=== PATIENT | male | born 1945 | race Caucasian/White ===

== ENCOUNTER 2022-06-20 20:27 | Inpatient (IN) | payer OTHER ==
[2022-06-20] MEDS ORDERED: Ondansetron ODT 4 MG TAB PO PRN (21:58)
[2022-06-20] MEDS ORDERED: Acetaminophen 650 MG Suppository PR PRN (21:58)
[2022-06-20] MEDS ORDERED: Dextrose 50% Abboject 50 ML SYRINGE SLOW IVP PRN (21:58)
[2022-06-20] MEDS ORDERED: Dextrose 5% in Water 1,000 ML IV PRN (21:58)
[2022-06-20] MEDS ORDERED: HumaLOG 300 UNITS/3 ML VIAL SC PRN (21:58)
[2022-06-20] MEDS ORDERED: hydrALAZINE 20 MG/ML VIAL SLOW IVP PRN (21:58)
[2022-06-20 22:55] VITALS: BMI 27.9
[2022-06-21 05:01] LABS: #Eosinphils 0.1 thou/uL (0.0-0.7); #Lymphocytes 1.4 thou/uL (1.20-3.40); #Monocytes 0.6 thou/uL (0.11-0.59); #Neutrophils 4.2 thou/uL (1.40-6.50); %Basophils 0.5 % (0.0-1.0); %Eosinophils 1.2 % (0.0-10.0); %Lymphocytes 22.1 % (21.0-51.0); %Monocytes 9.4 % (0.0-10.0); %Neutrophils 66.9 % (42.0-75.0); Hemoglobin 12.6 g/dL (14.0-18.0); Mean Corpuscular HGB CONC 32.8 g/dL (32.0-36.0); Mean Corpuscular Hemoglobin 32.9 pg (27.0-31.0); Mean Platelet Volume 7.9 fL (7.4-10.4); Platelet Count 166 10x3/uL (130-400); RBC Distribution Width 11.9 % (11.5-14.5); Red Blood Cell (RBC) Count 3.83 mill/uL (4.70-6.10); White Blood Cell (WBC) Count 6.3 10x3/uL (4.8-10.8)
[2022-06-21 05:28] LABS: Anion Gap 13 mmol/L (10-20); BUN (Urea Nitrogen) 16 mg/dL (8.4-25.7); Calc. Creatinine Clearance 104 mL/min (70-130); Calcium 9.8 mg/dL (7.8-10.44); Carbon Dioxide 27 mmol/L (23-31); Cardiac Risk 3.6 (Less than 4.5); Chloride 103 mmol/L (98-107); Cholesterol 128 mg/dl (< 200 Desired); Estimated GFR 91; Glucose 109 mg/dL (83-110); HDL Cholesterol 36 mg/dL (>60 Neg Risk); LDL Cholesterol, Calculated 71 mg/dL; Magnesium 1.7 mg/dL (1.6-2.6); Sodium 139 mmol/L (136-145); Triglycerides 104 mg/dL (Less than 150)
[2022-06-21] MEDS: Aspirin 81 mg Enteric Coated Tablet PO SCH (13:22)
[2022-06-21] MEDS: Atorvastatin Calcium 40 MG TAB PO SCH (20:04)
[2022-06-21] MEDS: Ondansetron PF 4 MG/2 ML Vial IVP PRN (20:04)
[2022-06-21] MEDS: Heparin 5,000 UNITS/ML VIAL SC SCH (20:04)
[2022-06-22 05:58] LABS: #Lymphocytes 1.3 thou/uL (1.20-3.40); #Monocytes 0.7 thou/uL (0.11-0.59); #Neutrophils 4.9 thou/uL (1.40-6.50); %Basophils 0.4 % (0.0-1.0); %Eosinophils 0.6 % (0.0-10.0); %Lymphocytes 19.1 % (21.0-51.0); %Monocytes 10.1 % (0.0-10.0); %Neutrophils 69.8 % (42.0-75.0); Hemoglobin 13.4 g/dL (14.0-18.0); Mean Corpuscular HGB CONC 33.7 g/dL (32.0-36.0); Mean Corpuscular Hemoglobin 33.8 pg (27.0-31.0); Mean Platelet Volume 8.3 fL (7.4-10.4); Platelet Count 178 10x3/uL (130-400); Red Blood Cell (RBC) Count 3.97 mill/uL (4.70-6.10); White Blood Cell (WBC) Count 7.1 10x3/uL (4.8-10.8)
[2022-06-22 06:18] LABS: Anion Gap 16 mmol/L (10-20); BUN (Urea Nitrogen) 13 mg/dL (8.4-25.7); Calc. Creatinine Clearance 94 mL/min (70-130); Calcium 10.2 mg/dL (7.8-10.44); Carbon Dioxide 25 mmol/L (23-31); Chloride 101 mmol/L (98-107); Estimated GFR 89; Glucose 129 mg/dL (83-110); Sodium 138 mmol/L (136-145)
[2022-06-22] MEDS: Aspirin 81 mg Enteric Coated Tablet PO SCH (09:27)
[2022-06-22] MEDS: Ondansetron PF 4 MG/2 ML Vial IVP PRN ×2 (09:27→20:11)
[2022-06-22] MEDS: Heparin 5,000 UNITS/ML VIAL SC SCH ×2 (09:28→20:10)
[2022-06-22] MEDS: Atorvastatin Calcium 40 MG TAB PO SCH (20:10)
[2022-06-23 06:12] LABS: #Lymphocytes 1.3 thou/uL (1.20-3.40); #Monocytes 0.7 thou/uL (0.11-0.59); #Neutrophils 3.9 thou/uL (1.40-6.50); %Basophils 0.3 % (0.0-1.0); %Eosinophils 0.7 % (0.0-10.0); %Monocytes 11.4 % (0.0-10.0); %Neutrophils 65.7 % (42.0-75.0); Hemoglobin 13.3 g/dL (14.0-18.0); Mean Corpuscular HGB CONC 33.4 g/dL (32.0-36.0); Mean Corpuscular Hemoglobin 33.5 pg (27.0-31.0); Mean Platelet Volume 7.8 fL (7.4-10.4); Platelet Count 173 10x3/uL (130-400); RBC Distribution Width 11.8 % (11.5-14.5); Red Blood Cell (RBC) Count 3.96 mill/uL (4.70-6.10); White Blood Cell (WBC) Count 5.9 10x3/uL (4.8-10.8)
[2022-06-23 06:31] LABS: Anion Gap 14 mmol/L (10-20); BUN (Urea Nitrogen) 16 mg/dL (8.4-25.7); Calc. Creatinine Clearance 87 mL/min (70-130); Calcium 9.6 mg/dL (7.8-10.44); Carbon Dioxide 25 mmol/L (23-31); Chloride 101 mmol/L (98-107); Estimated GFR 86; Glucose 126 mg/dL (83-110); Sodium 136 mmol/L (136-145)
[2022-06-23] MEDS: Aspirin 81 mg Enteric Coated Tablet PO SCH (10:12)
[2022-06-23] MEDS: Heparin 5,000 UNITS/ML VIAL SC SCH ×2 (10:19→20:35)
[2022-06-23] MEDS: HumaLOG 300 UNITS/3 ML VIAL SC PRN (15:16)
[2022-06-23] MEDS: Lisinopril 10 MG TAB PO SCH (20:35)
[2022-06-23] MEDS: Atorvastatin Calcium 40 MG TAB PO SCH (20:35)
[2022-06-24 05:46] LABS: #Lymphocytes 1.4 thou/uL (1.20-3.40); #Monocytes 0.7 thou/uL (0.11-0.59); #Neutrophils 4.1 thou/uL (1.40-6.50); %Basophils 0.4 % (0.0-1.0); %Eosinophils 0.8 % (0.0-10.0); %Lymphocytes 22.3 % (21.0-51.0); %Monocytes 11.2 % (0.0-10.0); %Neutrophils 65.2 % (42.0-75.0); Hemoglobin 12.8 g/dL (14.0-18.0); Mean Corpuscular HGB CONC 33.6 g/dL (32.0-36.0); Mean Corpuscular Hemoglobin 33.5 pg (27.0-31.0); Mean Corpuscular Volume 99.5 fl (78.0-98.0); Mean Platelet Volume 7.8 fL (7.4-10.4); Platelet Count 180 10x3/uL (130-400); RBC Distribution Width 11.9 % (11.5-14.5); Red Blood Cell (RBC) Count 3.83 mill/uL (4.70-6.10); White Blood Cell (WBC) Count 6.3 10x3/uL (4.8-10.8)
[2022-06-24 06:05] LABS: Anion Gap 13 mmol/L (10-20); BUN (Urea Nitrogen) 22 mg/dL (8.4-25.7); Calc. Creatinine Clearance 79 mL/min (70-130); Carbon Dioxide 29 mmol/L (23-31); Chloride 100 mmol/L (98-107); Estimated GFR 77; Glucose 139 mg/dL (83-110); Potassium 3.9 mmol/L (3.5-5.1); Sodium 138 mmol/L (136-145)
[2022-06-24] MEDS: Aspirin 81 mg Enteric Coated Tablet PO SCH (09:21)
[2022-06-24] MEDS: Heparin 5,000 UNITS/ML VIAL SC SCH ×2 (09:21→20:33)
[2022-06-24] MEDS: Tamsulosin HCl 0.4 MG CAP PO SCH (09:21)
[2022-06-24] MEDS: Lisinopril 10 MG TAB PO SCH ×2 (09:37→20:30)
[2022-06-24] MEDS ORDERED: Polyethylene Glycol 3350 17 GM Packet PO SCH (14:40)
[2022-06-24] MEDS: Atorvastatin Calcium 40 MG TAB PO SCH (20:32)
[2022-06-25 05:26] LABS: #Eosinphils 0.1 thou/uL (0.0-0.7); #Lymphocytes 1.6 thou/uL (1.20-3.40); #Monocytes 0.8 thou/uL (0.11-0.59); #Neutrophils 4.3 thou/uL (1.40-6.50); %Basophils 0.3 % (0.0-1.0); %Eosinophils 1.2 % (0.0-10.0); %Lymphocytes 23.5 % (21.0-51.0); %Monocytes 11.5 % (0.0-10.0); %Neutrophils 63.4 % (42.0-75.0); Hemoglobin 12.9 g/dL (14.0-18.0); Mean Corpuscular HGB CONC 33.9 g/dL (32.0-36.0); Mean Corpuscular Hemoglobin 33.8 pg (27.0-31.0); Mean Corpuscular Volume 99.5 fl (78.0-98.0); Mean Platelet Volume 7.7 fL (7.4-10.4); Platelet Count 162 10x3/uL (130-400); RBC Distribution Width 11.9 % (11.5-14.5); Red Blood Cell (RBC) Count 3.83 mill/uL (4.70-6.10); White Blood Cell (WBC) Count 6.8 10x3/uL (4.8-10.8)
[2022-06-25 05:51] LABS: Anion Gap 13 mmol/L (10-20); BUN (Urea Nitrogen) 25 mg/dL (8.4-25.7); Calc. Creatinine Clearance 83 mL/min (70-130); Calcium 9.8 mg/dL (7.8-10.44); Carbon Dioxide 28 mmol/L (23-31); Chloride 100 mmol/L (98-107); Estimated GFR 81; Glucose 156 mg/dL (83-110); Potassium 4.1 mmol/L (3.5-5.1); Sodium 137 mmol/L (136-145)
[2022-06-25] MEDS: HumaLOG 300 UNITS/3 ML VIAL SC PRN ×3 (06:08→18:13)
[2022-06-25] MEDS ORDERED: Cepastat Lozenges 1 LOZ PO PRN (06:30)
[2022-06-25] MEDS: ALPRAZolam 0.25 MG TAB PO PRN (07:08)
[2022-06-25] MEDS: Tamsulosin HCl 0.4 MG CAP PO SCH (08:45)
[2022-06-25] MEDS: Polyethylene Glycol 3350 17 GM Packet PO SCH (08:45)
[2022-06-25] MEDS: Aspirin 81 mg Enteric Coated Tablet PO SCH (08:46)
[2022-06-25] MEDS: Heparin 5,000 UNITS/ML VIAL SC SCH ×2 (08:46→21:28)
[2022-06-25] MEDS: Lisinopril 10 MG TAB PO SCH (08:59)
[2022-06-25 20:34] LABS: Bacteria/HPF None Seen HPF (None Seen); Bilirubin Negative (Negative); Blood, Urine Negative (Negative); CAUTI Indications for Culture Dysuria,urgency,freq; Clarity Clear (Clear); Glucose, Urine (Dipstick) 70 mg/dL (Negative); Ketone, Urine Negative (Negative); Leukocyte 500 Leu/uL (Negative); Nitrite Negative (Negative); Protein, Urine (Dipstick) 20 mg/dL (Neg-Trace); RBC/HPF 0-3 HPF (0-3); Specific Gravity, Urine 1.027 (1.002-1.036); Squamous Epithelial 0-3 HPF (0-3); WBC/HPF 21-50 HPF (0-3)
[2022-06-25 20:35] LABS: Urine Culture Reflex Yes Yes
[2022-06-25] MEDS: Atorvastatin Calcium 40 MG TAB PO SCH (21:28)
[2022-06-26 05:18] LABS: #Eosinphils 0.1 thou/uL (0.0-0.7); #Lymphocytes 1.3 thou/uL (1.20-3.40); #Monocytes 0.7 thou/uL (0.11-0.59); #Neutrophils 3.9 thou/uL (1.40-6.50); %Basophils 0.3 % (0.0-1.0); %Eosinophils 1.2 % (0.0-10.0); %Lymphocytes 21.8 % (21.0-51.0); %Monocytes 11.2 % (0.0-10.0); %Neutrophils 65.5 % (42.0-75.0); Hemoglobin 12.5 g/dL (14.0-18.0); Mean Corpuscular HGB CONC 32.7 g/dL (32.0-36.0); Mean Platelet Volume 7.6 fL (7.4-10.4); Platelet Count 182 10x3/uL (130-400)
[2022-06-26 05:45] LABS: Anion Gap 11 mmol/L (10-20); BUN (Urea Nitrogen) 24 mg/dL (8.4-25.7); Calc. Creatinine Clearance 79 mL/min (70-130); Calcium 9.7 mg/dL (7.8-10.44); Carbon Dioxide 30 mmol/L (23-31); Chloride 101 mmol/L (98-107); Estimated GFR 77; Glucose 162 mg/dL (83-110); Potassium 4.3 mmol/L (3.5-5.1); Sodium 138 mmol/L (136-145)
[2022-06-26] MEDS ORDERED: cefTRIAXone\\ROCEPHIN 1 GM in Sodium Chloride 0.9% 100 ML IVPB SCH (08:00)
[2022-06-26] MEDS: Polyethylene Glycol 3350 17 GM Packet PO SCH (09:36)
[2022-06-26] MEDS: Heparin 5,000 UNITS/ML VIAL SC SCH ×2 (09:37→21:11)
[2022-06-26] MEDS: Aspirin 81 mg Enteric Coated Tablet PO SCH (09:37)
[2022-06-26] MEDS: Tamsulosin HCl 0.4 MG CAP PO SCH (09:37)
[2022-06-26] MEDS: HumaLOG 300 UNITS/3 ML VIAL SC PRN ×2 (12:29→17:13)
[2022-06-26] MEDS ORDERED: Senokot 8.6 MG TAB PO PRN (13:24)
[2022-06-26] MEDS ORDERED: Bisacodyl 10 MG SUPP PR PRN (13:24)
[2022-06-26] MEDS ORDERED: Lisinopril 2.5 MG TAB PO SCH (14:00)
[2022-06-26] MEDS: Atorvastatin Calcium 40 MG TAB PO SCH (21:11)
[2022-06-26] MEDS: Acetaminophen 325 MG TAB PO PRN (21:12)
[2022-06-26] MEDS: ALPRAZolam 0.25 MG TAB PO PRN (21:39)
[2022-06-27 05:34] LABS: #Eosinphils 0.1 thou/uL (0.0-0.7); #Lymphocytes 1.4 thou/uL (1.20-3.40); #Monocytes 0.7 thou/uL (0.11-0.59); #Neutrophils 3.3 thou/uL (1.40-6.50); %Basophils 0.4 % (0.0-1.0); %Eosinophils 1.3 % (0.0-10.0); %Lymphocytes 25.8 % (21.0-51.0); %Neutrophils 59.5 % (42.0-75.0); Hemoglobin 12.8 g/dL (14.0-18.0); Mean Corpuscular HGB CONC 33.5 g/dL (32.0-36.0); Mean Corpuscular Hemoglobin 33.7 pg (27.0-31.0); Mean Platelet Volume 7.7 fL (7.4-10.4); Platelet Count 170 10x3/uL (130-400); RBC Distribution Width 12.1 % (11.5-14.5); Red Blood Cell (RBC) Count 3.79 mill/uL (4.70-6.10); White Blood Cell (WBC) Count 5.6 10x3/uL (4.8-10.8)
[2022-06-27 05:56] LABS: Anion Gap 13 mmol/L (10-20); BUN (Urea Nitrogen) 23 mg/dL (8.4-25.7); Calc. Creatinine Clearance 78 mL/min (70-130); Calcium 9.6 mg/dL (7.8-10.44); Carbon Dioxide 27 mmol/L (23-31); Chloride 100 mmol/L (98-107); Estimated GFR 76; Glucose 164 mg/dL (83-110); Potassium 4.3 mmol/L (3.5-5.1); Sodium 136 mmol/L (136-145)
[2022-06-27] MEDS: HumaLOG 300 UNITS/3 ML VIAL SC PRN ×3 (06:12→16:55)
[2022-06-27] MEDS: Tamsulosin HCl 0.4 MG CAP PO SCH (08:14)
[2022-06-27] MEDS: ALPRAZolam 0.25 MG TAB PO PRN (08:14)
[2022-06-27] MEDS: Polyethylene Glycol 3350 17 GM Packet PO SCH (08:15)
[2022-06-27] MEDS: Heparin 5,000 UNITS/ML VIAL SC SCH ×2 (08:16→21:00)
[2022-06-27] MEDS: Aspirin 81 mg Enteric Coated Tablet PO SCH (08:16)
[2022-06-27] MEDS ORDERED: Lisinopril 2.5 MG TAB PO SCH ×2 (09:00)
[2022-06-27] MEDS ORDERED: Famotidine 20 MG TAB PO SCH (15:06)
[2022-06-27] MEDS: Atorvastatin Calcium 40 MG TAB PO SCH (20:59)
[2022-06-27] MEDS: Acetaminophen 325 MG TAB PO PRN (20:59)
[2022-06-28] MEDS: Acetaminophen 325 MG TAB PO PRN ×2 (02:31→08:55)
[2022-06-28] MEDS ORDERED: Lisinopril 2.5 MG TAB PO SCH (08:04)
[2022-06-28] MEDS: Aspirin 81 mg Enteric Coated Tablet PO SCH (08:54)
[2022-06-28] MEDS: Tamsulosin HCl 0.4 MG CAP PO SCH (08:54)
[2022-06-28] MEDS: Heparin 5,000 UNITS/ML VIAL SC SCH (08:55)
[2022-06-28] MEDS: Polyethylene Glycol 3350 17 GM Packet PO SCH (08:55)
[2022-06-28] MEDS ORDERED: Lisinopril 10 MG TAB PO SCH (09:00)
[2022-06-28] MEDS: ALPRAZolam 0.25 MG TAB PO PRN (09:05)
[2022-06-28] MEDS: HumaLOG 300 UNITS/3 ML VIAL SC PRN (11:00)
[2022-06-28 11:44] VITALS: TEMP 97.6
[2022-06-28 15:48] VITALS: BP 94/51
== END 2022-06-28 18:24 | DRG 65 ==
LOC: ERS 20:27 → NEURO 21:11 → OBSVTOIN 06-21 14:17
PROVIDERS: ADMIT Internal Medicine; ATTEND Internal Medicine
DX: I63.81 Other cerebral infarction due to occlusion or stenosis of small artery (principal); G81.91 Hemiplegia, unspecified affecting right dominant side; N39.0 Urinary tract infection, site not specified; R47.81 Slurred speech; R29.703 NIHSS score 3; G89.29 Other chronic pain; M54.9 Dorsalgia, unspecified; E11.9 Type 2 diabetes mellitus without complications; N40.0 Benign prostatic hyperplasia without lower urinary tract symptoms; E83.42 Hypomagnesemia; K59.00 Constipation, unspecified; Z86.73 Personal history of transient ischemic attack (TIA), and cerebral infarction without residual deficits; I25.2 Old myocardial infarction; Z95.1 Presence of aortocoronary bypass graft; Z79.899 Other long term (current) drug therapy; Z79.01 Long term (current) use of anticoagulants; Z85.038 Personal history of other malignant neoplasm of large intestine; Z92.21 Personal history of antineoplastic chemotherapy; Z98.890 Other specified postprocedural states; Z87.891 Personal history of nicotine dependence
CPT/HCPCS: 36415; 36416; 70551; 74018; 80048; 80061; 81001; 83735; 85025; 87086; 93306; G0378; J0696; J1644; J1815; J2405; J3490

== ENCOUNTER 2022-10-08 14:22 | Outpatient (CLI) | payer OTHER ==
[~2022-10-08 14:22] MED LIST: Iopamidol 370 76% 100 ML VIAL ONE
== END 2022-10-08 14:23 | disposition home or self-care (01) ==
LOC: BICCT 14:22
PROVIDERS: ATTEND Thoracic Surgery (Cardiothoracic Vascular Surgery)
DX: R91.8 Other nonspecific abnormal finding of lung field (principal); J98.4 Other disorders of lung
CPT/HCPCS: 71260; 82565; Q9967